=== PATIENT | female | born 1980 | race Caucasian/White ===

== ENCOUNTER 2016-06-01 10:33 | Emergency (ER) | payer BC ==
[2016-06-01] MEDS ORDERED: LORazepam TAB(*) 0.5 MG PO ONE (11:43)
[2016-06-01] MEDS ORDERED: NS 0.9% 1000 ML* 1,000 ML IV ONE (11:44)
[2016-06-01] MEDS ORDERED: NS 0.9% 1000 ML* 1,000 ML BOLUS SCH (11:45)
[2016-06-01] MEDS ORDERED: LORazepam TAB(*) 1 MG PO ONE (11:51)
[2016-06-01] MEDS ORDERED: Ondansetron INJ* 2 MG/ML VIAL IV ONE (12:52)
[2016-06-01] MEDS ORDERED: Ondansetron INJ* 2 MG/ML VIAL ONE (12:53)
[2016-06-01 12:57] VITALS: BP 135/81
--- NOTE | 2016-06-12 08:54 | UC ---
juanito Tripp Timothy, scribed for Terrie Salinas MD on 06/01/16 at 1119 . Psychiatric Complaint HPI - HPI Summary HPI Summary: Kevin Trejo is a 35 yo female presenting to [facility] with anxiety. Pt is accompanied by her father. Pt is breast feeding. Pt states she has been having difficulty sleeping and feels nervous and panicked. She has a Hx of anxiety. She states she has had cycles of anxiety all her life. Her father states she has been stressed by work and everyone in her family has had the flu. Pt denies any thoughts of self-harm, no homicidal ideation. Pt feels overwhelmed. She states she has been on lexapro and very low-dose valium in the past, with some relief of her anxiety. She is a long term care social worker. Pt also states that since her C- section last year she feels like she has an organ move in her RLQ when she bends over, and it is very painful to straighten up, but once straightened the pain resolves. She lives in [place], [place]. Her MHx includes anxiety, , and shingles. - History Of Current Complaint Chief Complaint: UCPsych Stated Complaint: ANXIETY Time Seen by Provider: 06/01/16 11:09 Hx Obtained From: Patient, Family/Roll Scale Man - father Hx Last Menstrual Period: IUD ?: No Onset/Duration: Gradual Onset, Lasting Weeks, Still Present Timing: Constant Severity Initially: Moderate Severity Currently: Moderate Character: Anxious Aggravating Factor(s): Recent Stress Associated Signs And Symptoms: Sleep Disturbance Related History: Positive For: Prior Psychiatric Issues - anxiety - Allergies/Home Medications Allergies/Adverse Reactions: Allergies Allergy/AdvReac Type Severity Reaction Status Date / Time Sulfa Antibiotics Allergy Intermediate Swelling Verified 06/01/16 10:58 Of Face,Lips,& Throat Eggplant Allergy Intermediate Swelling Uncoded 06/01/16 10:58 Of Face,Lips,& Throat PMH/Surg Hx/FS Hx/Imm Hx Endocrine History Of: Denies: Diabetes, Thyroid Disease Cardiovascular History Of: Denies: Cardiac Disorders, Hypertension Respiratory History Of: Denies: COPD, Asthma GI/ History Of: Denies: Ulcer Psychological History Of: Reports: Anxiety - Surgical History Surgical History: Yes Surgery Procedure, Year, and Place: csection x 2 - Family History Known Family History: Positive: Other - no suicide. Anxiety. - Social History Occupation: Employed Full-time Lives: With Family Alcohol Use: Rare Substance Use Type: None Smoking Status (MU): Never Smoked Tobacco Type: Cigarettes Length of Time of Smoking/Using Tobacco: 5 cigs/week Have You Smoked in the Last Year: No - Immunization History Most Recent Influenza Vaccination: unsure Most Recent Tetanus Shot: 02/24/15 Most Recent Pneumonia Vaccination: none Review of Systems Constitutional: Negative Skin: Negative Eyes: Negative ENT: Negative Respiratory: Negative Cardiovascular: Negative Gastrointestinal: Negative Genitourinary: Negative Motor: Negative Neurovascular: Negative Musculoskeletal: Negative Neurological: Negative Psychological: Anxious - with sleep disturbance All Other Systems Reviewed And Are Negative: Yes Physical Exam Triage Information Reviewed: Yes Appearance: No Pain Distress, Well-Nourished, Ill-Appearing - anxious and tearful on exam Vital Signs: Initial Vital Signs Temp 98.3 F 06/01/16 10:52 Pulse 97 06/01/16 10:52 Resp 16 06/01/16 10:52 BP 137/82 06/01/16 10:52 Pulse Ox 99 06/01/16 10:52 Vital Signs Reviewed: Yes Eyes: Positive: Conjunctiva Clear. Negative: Discharge ENT: Positive: Hearing grossly normal. Negative: Muffled/hoarse voice Neck: Positive: Supple, Nontender Respiratory: Positive: Lungs clear, Normal breath sounds, No respiratory distress Cardiovascular: Positive: RRR, No Murmur, Pulses Normal, Brisk Capillary Refill Abdomen Description: Positive: No Organomegaly. Negative: Nontender - mild right flank enderness, Distended, Guarding, Hepatomegaly, McBurney's Point Tenderness, Peritoneal Signs, Pulsatile Mass, Splenomegaly Musculoskeletal: Positive: Strength Intact, ROM Intact Neurological: Positive: Alert, Muscle Tone Normal Psychological: Positive: Age Appropriate Behavior, Other: - anxious Skin Exam: Normal Skin: Negative: rashes Re-Evaluation - Re-Evaluation First Eval Re-Evaluation Time: 11:59 Change: Improved Comment: Pt is much improved and is smiling. She will receive Rx for lexapro and ativan, and dosages were discussed. She is agreeable to current course of Tx. Second Eval Re-Evaluation Time: 12:55 Change: Worse Comment: Pt is now somewhat rehydrated and has mucous. She began to cough, and coughed to the point of vomiting. She will receive zofran, as well as her second L of fluid. She will have strep and flu tests run as well. Psych Complaint Course/Dx - Course Course Of Treatment: Kevin Trejo is a 35 yo female presenting to [facility] with anxiety. She denies any SI or thoughts of self-harm. No homicidal ideation. Her medication list was reviewed this visit. She has agreed to contract for safety. She is requesting IV fluids because she states that she has been dehydrated, in part due to breast-feeding, in part due to her anxiety. She received 2 L of fluids in [facility]. Lexapro was considered for treatment, Pt is concerned that lexapro may have some risk given that she is breast-feeding. Lexapro is cited to have a low risk of harm. Ativan was considered, and is cited to have some risk in that it decreases milk production. After discussion with the Pt, she has chosen ativan because the risks outweigh the benefits. She will also be given lexapro as discussed during her re-evaluation. She was counseled that ativan can be addicting. Group A Rapid Strep Test is negative. After clinical examination and review of her lab work and treatment, she will be discharged home with anxiety, dehydration, and lactating mother with appropriate instructions. - Differential Dx/Diagnosis Differential Diagnosis/HQI/PQRI: Anxiety, Bipolar Disorder, Depression Provider Diagnoses: anxiety, dehydration, lactating mother Discharge - Discharge Plan Condition: Stable Disposition: HOME Prescriptions: Escitalopram Oxalate [Lexapro] 10 mg PO DAILY #30 tab LORazepam TAB(*) [Ativan 0.5 MG TAB (*)] 0.5 mg PO Q8H PRN #15 tab MDD 3 PRN Reason: Anxiety Patient Education Materials: Anxiety (ED), Dehydration (ED), and the Working Mom (ED) Forms: *Work Release Referrals: Soni Rodriguez MD [Primary Care Provider] - If Needed Additional Instructions: Please remember that you have contracted for safety. We recommend Noy Oconnell @ , [address] [place] [address] for a therapist in [place]. Additionally, consider the other options for potential therapists given to you on the business card. Please follow up with a therapist as soon as you are able. Return to urgent care or the emergency department with any new or recurring symptoms, particularly if you begin to have thoughts of self harm or suicide. The documentation as recorded by the juanito workman Timothy accurately reflects the service I personally performed and the decisions made by me, Terrie Salinas MD.
== END 2016-06-01 13:48 | disposition home or self-care (01) ==
LOC: UCEAST 10:33
DX: F41.9 Anxiety disorder, unspecified (principal); E86.0 Dehydration; Z39.1 Encounter for care and examination of lactating mother; Z72.0 Tobacco use
CPT/HCPCS: 87651; 96360; 96374; 96376; 99213; A9270-GY; G0463; J2405

== ENCOUNTER → 2016-06-26 10:50 | Emergency (ER) | payer BC ==
[~2016-06-26 10:50] MED LIST: LORazepam TAB(*) 0.5 MG PO ONE; LORazepam TAB(*) 1 MG PO ONE; Ondansetron ODT TAB* 4 MG ONE; Ondansetron ODT TAB* 4 MG PO ONE; Ondansetron TAB* 4 MG ONE
[2016-06-26 12:47] LABS: Hematocrit 45 % (35-47); Hemoglobin 15.1 g/dl (12.0-16.0); Mean Corpuscular HGB Conc 33 g/dl (31-36); Mean Corpuscular Hemoglobin 31 pg (27-31); Mean Corpuscular Volume 93 fL (80-97); Mean Platelet Volume 8 um3 (7.4-10.4); Red Blood Count 4.84 10^6/ul (4.0-5.4); Red Cell Distribution Width 14 % (10.5-15); White Blood Count 6.6 10^3/ul (3.5-10.8)
[2016-06-26 13:11] LABS: ALT 81 U/L (7-52); AST 88 U/L (13-39); Alkaline Phosphatase 67 U/L (34-104); Anion Gap 11 mmol/L (2-11); BUN/Creatinine Ratio 12.9 (8-20); Blood Urea Nitrogen 9 mg/dL (6-24); CO2 Carbon Dioxide 24 mmol/L (22-32); Calcium 9.1 mg/dL (8.6-10.3); Chloride 101 mmol/L (101-111); EGFR African American 122.5 (>60); EGFR Non-African American 95.2 (>60); Globulin 2.9 g/dL (2-4); Glucose 78 mg/dL (70-100); Potassium 3.9 mmol/L (3.5-5.0); Sodium 136 mmol/L (133-145); Total Protein 6.9 g/dL (6.4-8.9)
[2016-06-26 13:21] LABS: Acetaminophen < 15 mcg/mL; Alcohol 87 mg/dL (<10); Salicylate < 2.50 mg/dL (<30)
[2016-06-26 13:32] LABS: TSH (Thyroid Stimulating Horm) 0.43 mcIU/mL (0.34-5.60)
[2016-06-26 14:14] LABS: Urine Bilirubin Negative (Negative); Urine Glucose Negative (Negative); Urine Nitrite Negative (Negative)
[2016-06-26 14:15] LABS: Benzodiazepine Urine Screen None Detected (None Detect)
[2016-06-26 15:30] VITALS: BP 163/98
--- NOTE | 2016-06-26 20:28 | ED ---
Kady Tripp Auryana, scribed for Fred Powell MD on 06/26/16 at 1410 . Psychiatric Complaint - HPI Summary HPI Summary: 35 year old female presents with increased anxiety over the last 6 months worse since 1 month ago. She reports that she has also been unable to eat due to intermittent vomiting with increased stress and anxiety. She reports that increased stress may be the issue. Her father reports that the last 6 months have been very stressful - patient started a new job, recently certified as a clinical therapist, and now is taking care of 2 children - new born and 5 year old - who are often sick. About 1 month ago she was seen at and given a Rx for Lexapro PO daily, and Ativan (.25 mg) as needed. Patient was seeing a therapist but recently stopped in February. Mirana IUD - no menstrual cycle since before . PMHx is significant for x2, and anxiety. FHx of breast CA, brain tumor, and anxiety. SHx is significant for occasional alcohol (4-6 glass wine a week-much decreased with condition) but no tobacco or recreational drug use. - History Of Current Complaint Chief Complaint: EDGeneral Time Seen by Provider: 06/26/16 11:33 Accompanied By: father Hx Obtained From: Patient Hx Last Menstrual Period: IUD ?: No Onset/Duration: Gradual Onset, Still Present - lasting months Timing: Constant Severity Initially: Mild Severity Currently: Moderate Character: Anxious Aggravating Factor(s): Recent Stress - see HPI Associated Signs And Symptoms: Positive: Appetite Change Related History: Positive For: Prior Psychiatric Issues Recent Stressor(s): FAMILY, WORK - Allergies/Home Medications Allergies/Adverse Reactions: Allergies Allergy/AdvReac Type Severity Reaction Status Date / Time Sulfa Antibiotics Allergy Intermediate Swelling Verified 06/26/16 11:35 Of Face,Lips,& Throat Eggplant Allergy Intermediate Swelling Uncoded 06/01/16 10:58 Of Face,Lips,& Throat PMH/Surg Hx/FS Hx/Imm Hx Endocrine/Hematology History: Denies: Hx Diabetes, Hx Thyroid Disease Cardiovascular History: Denies: Hx Hypertension Respiratory History: Denies: Hx Asthma, Hx Chronic Obstructive Pulmonary Disease (COPD) GI History: Denies: Hx Ulcer Psychiatric History: Reports: Hx Anxiety - Surgical History Surgery Procedure, Year, and Place: csection x 2 Infectious Disease History: No Infectious Disease History: Reports: Hx Shingles - ? 12/2013 Denies: Hx Clostridium Difficile, Hx Hepatitis, Hx Human Immunodeficiency Virus (HIV), Hx of Known/Suspected MRSA, Hx Tuberculosis, Traveled Outside the [place] in Last 30 Days - Family History Known Family History: Positive: Other - no suicide. Anxiety. - Social History Occupation: Employed Full-time Lives: With Family Alcohol Use: Rare Substance Use Type: Reports: None Smoking Status (MU): Never Smoked Tobacco Type: Cigarettes Length of Time of Smoking/Using Tobacco: 5 cigs/week Have You Smoked in the Last Year: No Review of Systems Constitutional: Negative Negative: Fever Eyes: Negative ENT: Negative Cardiovascular: Negative Respiratory: Negative Positive: Other - anorexia Genitourinary: Negative Musculoskeletal: Negative Skin: Negative Neurological: Negative Positive: Anxious All Other Systems Reviewed And Are Negative: Yes Physical Exam - Summary Physical Exam Summary: VITAL SIGNS: Reviewed. GENERAL: Patient is a well developed and nourished female who is lying comfortable in the stretcher. Patient is not in any acute respiratory distress. HEAD AND FACE: No signs of trauma. No ecchymosis, hematomas or skull depressions. No sinus tenderness. EYES: PERRLA, EOMI x 2, No injected conjunctiva, no nystagmus. EARS: Hearing grossly intact. Ear canals and tympanic membranes are within normal limits. MOUTH: Oropharynx within normal limits. NECK: Supple, trachea is midline, no adenopathy, no JVD, no carotid bruit, no c- spine tenderness, neck with full ROM. CHEST: Symmetric, no tenderness at palpation LUNGS: Clear to auscultation bilaterally. No wheezing or crackles. CVS: Regular rate and rhythm, S1 and S2 present, no murmurs or gallops appreciated. ABDOMEN: Soft, non-tender. No signs of distention. No rebound no guarding, and no masses palpated. Bowel sounds are normal. EXTREMITIES: FROM in all major joints, no edema, no cyanosis or clubbing. NEURO: Alert and oriented x 3. No acute neurological deficits. Speech is normal and follows commands. SKIN: Dry and warm PSYCH: Anxious and teary. No signs of psychosis or pressure speech. No tangential speech. Triage Information Reviewed: Yes Vital Signs On Initial Exam: Initial Vitals Temp Pulse Resp BP Pulse Ox 97.4 F 89 20 146/84 99 06/26/16 10:51 06/26/16 10:51 06/26/16 10:51 06/26/16 10:51 06/26/16 10:51 Vital Signs Reviewed: Yes Diagnostics - Vital Signs Vital Signs Temp Pulse Resp BP Pulse Ox 06/26/16 11:34 83 95 06/26/16 11:32 142/89 06/26/16 10:54 97.4 F 82 16 146/84 98 06/26/16 10:51 97.4 F 89 20 146/84 99 - Laboratory Lab Results: Lab Results 06/26/16 06/26/16 06/26/16 Range/Units 12:30 12:30 13:41 WBC 6.6 (3.5-10.8) 10^3/ul RBC 4.84 (4.0-5.4) 10^6/ul Hgb 15.1 (12.0-16.0) g/dl Hct 45 (35-47) % MCV 93 (80-97) fL MCH 31 (27-31) pg MCHC 33 (31-36) g/dl RDW 14 (10.5-15) % Plt Count 229 (150-450) 10^3/ul MPV 8 (7.4-10.4) um3 Neut % (Auto) 67.8 (38-83) % Lymph % (Auto) 21.3 L (25-47) % [place] % (Auto) 10.0 H (1-9) % Eos % (Auto) 0.6 (0-6) % Baso % (Auto) 0.3 (0-2) % Absolute Neuts (auto) 4.5 (1.5-7.7) 10^3/ul Absolute Lymphs (auto) 1.4 (1.0-4.8) 10^3/ul Absolute Monos (auto) 0.7 (0-0.8) 10^3/ul Absolute Eos (auto) 0 (0-0.6) 10^3/ul Absolute Basos (auto) 0 (0-0.2) 10^3/ul Absolute Nucleated RBC 0 10^3/ul Nucleated RBC % 0.1 Sodium 136 (133-145) mmol/L Potassium 3.9 (3.5-5.0) mmol/L Chloride 101 (101-111) mmol/L Carbon Dioxide 24 (22-32) mmol/L Anion Gap 11 (2-11) mmol/L BUN 9 (6-24) mg/dL Creatinine 0.70 (0.51-0.95) mg/dL Est GFR ( Amer) 122.5 (>60) Est GFR (Non-Af Amer) 95.2 (>60) BUN/Creatinine Ratio 12.9 (8-20) Glucose 78 (70-100) mg/dL Calcium 9.1 (8.6-10.3) mg/dL Total Bilirubin 0.40 (0.2-1.0) mg/dL AST 88 H (13-39) U/L ALT 81 H (7-52) U/L Alkaline Phosphatase 67 (34-104) U/L Total Protein 6.9 (6.4-8.9) g/dL Albumin 4.0 (3.2-5.2) g/dL Globulin 2.9 (2-4) g/dL Albumin/Globulin Ratio 1.4 (1-3) TSH 0.43 (0.34-5.60) mcIU/mL Beta HCG, Quant < 0.60 mIU/mL Urine Color Yellow Urine Appearance Clear Urine pH 6.0 (5-9) Ur Specific [place] 1.009 L (1.010-1.030) Urine Protein Negative (Negative) Urine Ketones Trace H (Negative) Urine Blood Negative (Negative) Urine Nitrate Negative (Negative) Urine Bilirubin Negative (Negative) Urine Urobilinogen Negative (Negative) Ur Leukocyte Esterase Negative (Negative) Urine Glucose Negative (Negative) Salicylates < 2.50 (<30) mg/dL Urine Opiates Screen (None Detect) Acetaminophen < 15 mcg/mL Ur Barbiturates Screen (None Detect) Ur Phencyclidine Scrn (None Detect) Ur Amphetamines Screen (None Detect) U Benzodiazepines Scrn (None Detect) Urine Cocaine Screen (None Detect) U Cannabinoids Screen (None Detect) Serum Alcohol 87 H (<10) mg/dL 06/26/16 Range/Units 13:41 WBC (3.5-10.8) 10^3/ul RBC (4.0-5.4) 10^6/ul Hgb (12.0-16.0) g/dl Hct (35-47) % MCV (80-97) fL MCH (27-31) pg MCHC (31-36) g/dl RDW (10.5-15) % Plt Count (150-450) 10^3/ul MPV (7.4-10.4) um3 Neut % (Auto) (38-83) % Lymph % (Auto) (25-47) % [place] % (Auto) (1-9) % Eos % (Auto) (0-6) % Baso % (Auto) (0-2) % Absolute Neuts (auto) (1.5-7.7) 10^3/ul Absolute Lymphs (auto) (1.0-4.8) 10^3/ul Absolute Monos (auto) (0-0.8) 10^3/ul Absolute Eos (auto) (0-0.6) 10^3/ul Absolute Basos (auto) (0-0.2) 10^3/ul Absolute Nucleated RBC 10^3/ul Nucleated RBC % Sodium (133-145) mmol/L Potassium (3.5-5.0) mmol/L Chloride (101-111) mmol/L Carbon Dioxide (22-32) mmol/L Anion Gap (2-11) mmol/L BUN (6-24) mg/dL Creatinine (0.51-0.95) mg/dL Est GFR ( Amer) (>60) Est GFR (Non-Af Amer) (>60) BUN/Creatinine Ratio (8-20) Glucose (70-100) mg/dL Calcium (8.6-10.3) mg/dL Total Bilirubin (0.2-1.0) mg/dL AST (13-39) U/L ALT (7-52) U/L Alkaline Phosphatase (34-104) U/L Total Protein (6.4-8.9) g/dL Albumin (3.2-5.2) g/dL Globulin (2-4) g/dL Albumin/Globulin Ratio (1-3) TSH (0.34-5.60) mcIU/mL Beta HCG, Quant mIU/mL Urine Color Urine Appearance Urine pH (5-9) Ur Specific [place] (1.010-1.030) Urine Protein (Negative) Urine Ketones (Negative) Urine Blood (Negative) Urine Nitrate (Negative) Urine Bilirubin (Negative) Urine Urobilinogen (Negative) Ur Leukocyte Esterase (Negative) Urine Glucose (Negative) Salicylates (<30) mg/dL Urine Opiates Screen None detected (None Detect) Acetaminophen mcg/mL Ur Barbiturates Screen None detected (None Detect) Ur Phencyclidine Scrn None detected (None Detect) Ur Amphetamines Screen None detected (None Detect) U Benzodiazepines Scrn None detected (None Detect) Urine Cocaine Screen None detected (None Detect) U Cannabinoids Screen None detected (None Detect) Serum Alcohol (<10) mg/dL Result Diagrams: 06/26/16 12:30 06/26/16 12:30 Lab Statement: Any lab studies that have been ordered have been reviewed, and results considered in the medical decision making process. Course/Dx - Course Course Of Treatment: patient is medically clear at 13:00 Assessment/Plan: Blood test are found within normal limits. UA is normal and UA is negative. Patient was given Ativan for anxiety. She had one episode of nausea and vomiting and she was given Zofran and her nausea improved. She is awaiting for [facility]. Patient was evaluated by Dr Peterson and he recommended to discharge patient home with f/u with mental health as an outpatient She was given 6 tablets of Ativan for her anxiety. . - Differential Dx/Clinical Impression Provider Diagnosis: Anxiety Discharge - Discharge Plan Condition: Stable Disposition: HOME Patient Education Materials: Generalized Anxiety Disorder (ED) Forms: *Gen. Provider Communication Referrals: Soni Rodriguez MD [Primary Care Provider] - Additional Instructions: Discharge Nurse Notes from [facility] -( 07/01/2016 Patient safe for discharge based on denial of suicidal or homicidal ideations and writers presentation of patient to Dr. Peterson. Discharge instructions include: Patient discharged home with the instructions to follow-up with [facility]- [address] [phone] (OBI signed for same). Patient will contact [facility] tomorrow 2016. If patient changes her mind and prefers to see Noy Petit, therapist [phone] [facility] [address] then she has to locate a psychiatrist for medication review. [facility] 4th Floor ( [phone] ( [address] [address] for alcohol counselling The documentation as recorded by the Kady workman Auryana accurately reflects the service I personally performed and the decisions made by me, Fred Powell MD.
== END | disposition home or self-care (01) ==
LOC: ED 10:50
DX: F41.9 Anxiety disorder, unspecified (principal)
CPT/HCPCS: 36415; 80053; 80307; 80320; 80329; 81003; 84443; 84702; 85025; 99283; A9270-GY; G0480

== ENCOUNTER 2016-07-13 15:18 | Inpatient (IN) | payer BC ==
[2016-07-13 15:47] LABS: Urine Bilirubin Negative (Negative); Urine Glucose Negative (Negative); Urine Nitrite Negative (Negative)
[2016-07-13 16:01] LABS: Benzodiazepine Urine Screen None Detected (None Detect)
[2016-07-13 16:12] LABS: Hematocrit 44 % (35-47); Hemoglobin 14.6 g/dl (12.0-16.0); Mean Corpuscular HGB Conc 33 g/dl (31-36); Mean Corpuscular Hemoglobin 30 pg (27-31); Mean Corpuscular Volume 91 fL (80-97); Mean Platelet Volume 8 um3 (7.4-10.4); Red Blood Count 4.85 10^6/ul (4.0-5.4); Red Cell Distribution Width 14 % (10.5-15); White Blood Count 10.7 10^3/ul (3.5-10.8)
[2016-07-13 16:16] LABS: Add Diff/Slide Review? Slide Review Added; Comments Flag Yes
[2016-07-13 16:23] LABS: ALT 119 U/L (7-52); AST 105 U/L (13-39); Albumin 3.8 g/dL (3.2-5.2); Alkaline Phosphatase 99 U/L (34-104); Anion Gap 11 mmol/L (2-11); Blood Urea Nitrogen 6 mg/dL (6-24); CO2 Carbon Dioxide 25 mmol/L (22-32); Calcium 8.9 mg/dL (8.6-10.3); Chloride 102 mmol/L (101-111); EGFR African American 128.8 (>60); EGFR Non-African American 100.2 (>60); Globulin 2.8 g/dL (2-4); Glucose 111 mg/dL (70-100); Potassium 3.8 mmol/L (3.5-5.0); Sodium 138 mmol/L (133-145); Total Protein 6.6 g/dL (6.4-8.9)
[2016-07-13 16:36] LABS: Eosinophils % 1 % (0-6); Neutrophil % 27 % (38-83); RBC Morphology Normal (Normal); Reactive Lymph % 21 % (0-6)
[2016-07-13 16:37] LABS: Add Path Review? YES; EBV Response NO
[2016-07-13 16:41] LABS: Manual Entry Verification HAN0055; Mono Internal Control QC Line Present
[2016-07-13] MEDS ORDERED: Haloperidol INJ IV/IM* 5 MG/ML AMP ONE (16:42)
[2016-07-13] MEDS ORDERED: diPHENhydraMINE IV* 50 MG/ML 1 ml VIAL (BENADRYL) ONE (16:42)
[2016-07-13] MEDS ORDERED: LORazepam INJ* 2 MG/ML 1 ML VIAL ONE (16:42)
[2016-07-13 16:49] LABS: Acetaminophen < 15 mcg/mL; Alcohol 368 mg/dL (<10); Salicylate < 2.50 mg/dL (<30)
[2016-07-13 16:58] LABS: TSH (Thyroid Stimulating Horm) 0.53 mcIU/mL (0.34-5.60)
--- NOTE | 2016-07-14 03:17 | ED ---
Progress - Progress Note Progress Note: pt admitted with the diagnosis of unspecified anxiety disorder in stable condition - Consult/PCP Time Called: 02:11 Course/Dx - Diagnoses Provider Diagnoses: Depression, Suicidal ideation
[2016-07-14] MEDS ORDERED: Al Hydrox/Mg Hydrox/Simet LIQ* 30 ML UDC PO PRN (03:56)
[2016-07-14] MEDS ORDERED: LORazepam IM* PER WAM PARAMETERS IM SCH (04:00)
[2016-07-14] MEDS ORDERED: LORazepam TAB(*) WAM SCALE 0-6 MG PO SCH (04:00)
[2016-07-14] MEDS: Folic Acid TAB* 1 MG DAILY PO SCH (08:25)
[2016-07-14] MEDS: Vitamin THERAPEUTIC TAB PO SCH (08:25)
[2016-07-14] MEDS: LORazepam TAB(*) 0.5 MG PO PRN ×2 (08:25→16:42)
[2016-07-14] MEDS: Citalopram TAB* 20 MG PO SCH (08:25)
--- NOTE | 2016-07-14 09:14 | ED ---
Carlyle Tripp Alfonso, scribed for Fred Powell MD on 07/13/16 at 1802 . Psychiatric Complaint - HPI Summary HPI Summary: This patient is a 35 year old female presenting to [facility] for SI since earlier today. She reports attempting to drown herself in the bath with intent of just going under the water so life would just be easier for everyone here. She has attempted suicide secondary to depression. She is crying hysterically and reports her acute on chronic anxiety is debilitating. Sx aggravated by drinking and alleviated by nothing. On her drive here, the patients reports her trying to jump out of the car 3 times. She has bruising on her arms from the trying to keep her in the car. Was at the ED two weeks ago for anxiety. She has been on Lexapro and drinks ETOH every day. Recently her tolerance to ETOH has decreased, leading her to fall on the floor after two glasses of wine. Past history of drug abuse. - History Of Current Complaint Chief Complaint: [facility]ental[facility] Time Seen by Provider: 07/13/16 15:34 Hx Obtained From: Patient, Family/Global Category Manager - Hx Last Menstrual Period: IUD Onset/Duration: Sudden Onset, Lasting Hours - Earlier today, Still Present Timing: Constant Severity Initially: Moderate Severity Currently: Moderate Character: Depressed, Anxious Aggravating Factor(s): Alcohol Use Alleviating Factor(s): Nothing Has Suicidal: Reports: Thoughts, With A Plan, Has Prior Attempt(s) - Allergies/Home Medications Allergies/Adverse Reactions: Allergies Allergy/AdvReac Type Severity Reaction Status Date / Time Sulfa Antibiotics Allergy Intermediate Swelling Verified 07/13/16 17:51 Of Face,Lips,& Throat Eggplant Allergy Intermediate Swelling Uncoded 06/01/16 10:58 Of Face,Lips,& Throat PMH/Surg Hx/FS Hx/Imm Hx Endocrine/Hematology History: Denies: Hx Diabetes, Hx Thyroid Disease Cardiovascular History: Denies: Hx Hypertension Respiratory History: Denies: Hx Asthma, Hx Chronic Obstructive Pulmonary Disease (COPD) GI History: Denies: Hx Ulcer Psychiatric History: Reports: Hx Anxiety Denies: Hx Eating Disorder, Hx of Violent Episodes Against Others - Surgical History Surgery Procedure, Year, and Place: csection x 2 Infectious Disease History: No Infectious Disease History: Reports: Hx Shingles - ? 12/2013 Denies: Hx Clostridium Difficile, Hx Hepatitis, Hx Human Immunodeficiency Virus (HIV), Hx of Known/Suspected MRSA, Hx Tuberculosis, Traveled Outside the [place] in Last 30 Days - Family History Known Family History: Positive: Other - no suicide. Anxiety. - Social History Alcohol Use: Rare Substance Use Type: Reports: None Smoking Status (MU): Never Smoked Tobacco Type: Cigarettes Length of Time of Smoking/Using Tobacco: 5 cigs/week Have You Smoked in the Last Year: No Review of Systems Constitutional: Negative Eyes: Negative ENT: Negative Cardiovascular: Negative Respiratory: Negative Gastrointestinal: Negative Genitourinary: Negative Musculoskeletal: Negative Skin: Negative Neurological: Negative Positive: Anxious, Depressed All Other Systems Reviewed And Are Negative: Yes Physical Exam - Summary Physical Exam Summary: VITAL SIGNS: Reviewed. GENERAL: Patient is a well-developed and nourished (MALE OR FEMALE) who is lying comfortable in the stretcher. Patient is not in any acute respiratory distress. HEAD AND FACE: No signs of trauma. No ecchymosis, hematomas or skull depressions. No sinus tenderness. EYES: PERRLA, EOMI x 2, No injected conjunctiva, no nystagmus. EARS: Hearing grossly intact. Ear canals and tympanic membranes are within normal limits. MOUTH: Oropharynx within normal limits. NECK: Supple, trachea is midline, no adenopathy, no JVD, no carotid bruit, no c- spine tenderness, neck with full ROM. CHEST: Symmetric, no tenderness at palpation LUNGS: Clear to auscultation bilaterally. No wheezing or crackles. CVS: Regular rate and rhythm, S1 and S2 present, no murmurs or gallops appreciated. ABDOMEN: Soft, non-tender. No signs of distention. No rebound no guarding, and no masses palpated. Bowel sounds are normal. EXTREMITIES: FROM in all major joints, no edema, no cyanosis or clubbing. NEURO: Alert and oriented x 3. No acute neurological deficits. Speech is normal and follows commands. SKIN: Dry and warm PSYCH: Depressed. Anxious. SI. Triage Information Reviewed: Yes Vital Signs On Initial Exam: Initial Vitals Temp Pulse Resp Pulse Ox 97.8 F 108 20 97 07/13/16 15:26 07/13/16 15:26 07/13/16 15:26 07/13/16 15:26 Vital Signs Reviewed: Yes Diagnostics - Vital Signs Vital Signs Temp Pulse Resp BP Pulse Ox 07/13/16 15:27 98.6 F 99 20 153/88 99 07/13/16 15:26 97.8 F 108 20 97 - Laboratory Lab Results: Lab Results 07/13/16 Range/Units 15:35 Urine Color Yellow Urine Appearance Cloudy Urine pH 6.0 (5-9) Ur Specific [place] 1.005 L (1.010-1.030) Urine Protein Negative (Negative) Urine Ketones Negative (Negative) Urine Blood Negative (Negative) Urine Nitrate Negative (Negative) Urine Bilirubin Negative (Negative) Urine Urobilinogen Negative (Negative) Ur Leukocyte Esterase Negative (Negative) Urine Glucose Negative (Negative) Result Diagrams: 07/13/16 15:56 07/13/16 15:56 Lab Statement: Any lab studies that have been ordered have been reviewed, and results considered in the medical decision making process. Course/Dx - Course Assessment/Plan: Test results within normal limits except for increased LFTs. Urinalysis within normal limits. ETOH of 368. Pt became belligerent, agitated, trying to leave, therefore the patient was given Benadryl, Haldol, and Ativan. At this time, the patient is resting comfortably. After the alcohol level becomes in the legal limit, the patient will be cleared by Dr. Ghosh, the next ER attending. The patient is hemodynamically stable. - Differential Dx/Clinical Impression Provider Diagnosis: Depression, Suicidal ideation Discharge - Discharge Plan Condition: Good Disposition: OTHER Discharge Disposition Comment: Pt will be signed out to Dr. Ghosh, pending dispo, awaiting MHE Referrals: Soni Rodriguez MD [Primary Care Provider] - The documentation as recorded by the Carlyle workman Alfonso accurately reflects the service I personally performed and the decisions made by , Fred Powell MD.
--- NOTE | 2016-07-14 18:33 | HP ---
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 reports this attempt occurred in the context of alcohol abuse. Per conversation with (#[phone]), patient has been consuming 1 - 1.5 bottles of wine per day. On the way to the ED, reports patient attempted to jump from the car while moving. He reports behavior associated with her intoxication. Patient also stated, "I think things would be easier if I wasn't here". Khushi screen was negative. Patient reports anxiety is worse in the morning. She reports "debilitating anxiety" as she considers her day. Patient is the mother of 2 young children, a 5yo girl and a 1yo boy who she is still nursing. 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 She reports being able to hold things together until the ester ended, but feels she abruptly decompensated after. reports some days patient is unable to get out of bed and on numerous occasions had to come home from work to care for her and the children. Patient reports she's been anxious since childhood. She denies unstable home life and reports her parents and are very supportive. Patient reports experiencing low self worth and "negative self talk". Patient has been on Lexapro rx'd by her PCP, but reports no recent benefit to her anxiety. She reports 1 year of counseling with a SW in her PCP's office, primarily focusing on stress mx techniques. Patient reports she has just scheduled an intake appt with a psychotherapist, Dr. Sosa. Patient reports a hx but no current use of illicit substances. Patient minimized her alcohol intake. She denies hx of suicide attempt. Patient denied hx of SIB. reports patient has hx of SIB(cutting in 2009). Patient presented to [facility] 2/2 suicidal gesture. On the unit she denies SI/HI and AH/VH. Past Psych Hx: Inpt - this is patient's 1st inpt psychiatric hospitalization Outpt - patient denies hx of encounters with psychiatrists, but reports hx of counseling x1 year with SW - patient reports her PCP rx'd her MH meds, Lexapro 10mg po daily currently Psychotropic med hx - Xanax, Ativan, Lexapro Suicide attempt Hx / SIB Hx: Patient denies suicide attempt hx reports hx in 2009 of cutting, stressor upcoming graduation and concurrent cocaine and heroin use Trauma Hx: Patient denies hx of physical abuse, emotional abuse, and sexual abuse. Substance Hx: Patient minimized alcohol consumption reporting rare use of alcohol in the last 2 months. reports patient drinks 1 -1.5 bottles of wine per day. Patient denies hx of DUI, Rehab, or occupational / legal issues 2/2 alcohol. Pateint denies hx of black out, alcohol w/d symptoms, and denies hx of alcohol w /d seizure. Patient reports hx of Cocaine use. reports remote hx of them both sniffing and smoking cocaine. also reports remote hx of them both sniffing heroin. Patient has been Rx'd Xanax and Ativan, and patient deny hx of abuse. Medical Hx: Denies Allergies: --------- Sulfa drugs Family Hx: Patient reports no family hx of MH issues. She reports only her maternal GM has BERENICE issues, alcohol. She reports there is no hx of attempted or completed suicide in her family. Social Hx: --------- -Patient to supportive -2 young children, one still nursing -close with parents, visited today -close with only sibling, sister, visited today -Patient is a licensed SW -Works as an instructor at [employer] -no firearms in the home PHYSICAL EXAM: Patient declines physical exam. Please see PE documented in [facility]: Complaint Note, dated 07/13/16 LABS: ----- Laboratory Tests 07/13/16 07/13/16 07/13/16 15:35 15:35 15:56 WBC 10.7 RBC 4.85 Hgb 14.6 Hct 44 MCV 91 MCH 30 MCHC 33 RDW 14 Plt Count 180 MPV 8 Neut % (Auto) 24.1 L Lymph % (Auto) 62.1 H Gladwin % (Auto) 11.3 H Eos % (Auto) 1.8 Baso % (Auto) 0.7 Absolute Neuts (auto) 2.6 Absolute Lymphs (auto) 6.7 H Absolute Monos (auto) 1.2 H Absolute Eos (auto) 0.2 Absolute Basos (auto) 0.1 Absolute Nucleated RBC 0.03 Neutrophils % 27 L Lymphocytes % 44 Reactive Lymphs % 21 H Monocytes % 7 Eosinophils % 1 Nucleated RBC % 0.3 Normal RBC Morphology Normal Hem Pathologist Commnt Sodium Potassium Chloride Carbon Dioxide Anion Gap BUN Creatinine Est GFR ( Amer) Est GFR (Non-Af Amer) BUN/Creatinine Ratio Glucose Calcium Total Bilirubin AST ALT Alkaline Phosphatase Total Protein Albumin Globulin Albumin/Globulin Ratio TSH Urine Color Yellow Urine Appearance Cloudy Urine pH 6.0 Ur Specific [place] 1.005 L Urine Protein Negative Urine Ketones Negative Urine Blood Negative Urine Nitrate Negative Urine Bilirubin Negative Urine Urobilinogen Negative Ur Leukocyte Esterase Negative Urine Glucose Negative Salicylates Urine Opiates Screen None detected Acetaminophen Ur Barbiturates Screen None detected Ur Phencyclidine Scrn None detected Ur Amphetamines Screen None detected U Benzodiazepines Scrn None detected Urine Cocaine Screen None detected U Cannabinoids Screen None detected Serum Alcohol Monoscreen Negative 07/13/16 15:56 WBC RBC Hgb Hct MCV MCH MCHC RDW Plt Count MPV Neut % (Auto) Lymph % (Auto) Gladwin % (Auto) Eos % (Auto) Baso % (Auto) Absolute Neuts (auto) Absolute Lymphs (auto) Absolute Monos (auto) Absolute Eos (auto) Absolute Basos (auto) Absolute Nucleated RBC Neutrophils % Lymphocytes % Reactive Lymphs % Monocytes % Eosinophils % Nucleated RBC % Normal RBC Morphology Hem Pathologist Commnt Sodium 138 Potassium 3.8 Chloride 102 Carbon Dioxide 25 Anion Gap 11 BUN 6 Creatinine 0.67 Est GFR ( Amer) 128.8 Est GFR (Non-Af Amer) 100.2 BUN/Creatinine Ratio 9.0 Glucose 111 H Calcium 8.9 Total Bilirubin 0.40 AST 105 H ALT 119 H Alkaline Phosphatase 99 Total Protein 6.6 Albumin 3.8 Globulin 2.8 Albumin/Globulin Ratio 1.4 TSH 0.53 Urine Color Urine Appearance Urine pH Ur Specific [place] Urine Protein Urine Ketones Urine Blood Urine Nitrate Urine Bilirubin Urine Urobilinogen Ur Leukocyte Esterase Urine Glucose Salicylates < 2.50 Urine Opiates Screen Acetaminophen < 15 Ur Barbiturates Screen Ur Phencyclidine Scrn Ur Amphetamines Screen U Benzodiazepines Scrn Urine Cocaine Screen U Cannabinoids Screen Serum Alcohol 368 H Monoscreen MSE: ----- Appearance - moderate build, fair hygeine, in NAD Behavior - mildly agitated, cooperative Speech - RRR, prosody wnl Eye Contact - good Mood - "anxious" Affect - depressed TP - linear and GD TC - needing to be home to nurse her baby son Perception - no signs of psychosis noted or reported Orientation - A&Ox3 Cognition - intact Insight - poor Judgement - poor SI / HI - present on admission, currently denies both ASSESSMENT: 1. Unspecified anxiety d/o 2. Alcohol induced depressive d/o 3. Alcohol use d/o, severe 4. Cocaine use d/o, in sustained remission 5. Opioid use d/o, in sustained remission PLAN: ------ 1. Continue admission to [facility] for safety and symptom mx. 2. Continue Celexa 20mg po daily for anxiety / mood symptoms. 3. Continue WAM and protocol for Ativan administration. 4. Continue vitamins(MVI, Folate,Thiamine). 5. Per staff patient allowed to bring in home breast pump to send home to nursing son. 6. Hospitalist consult for reports of worsening hemorrhoid pain. 7. Continue compiling collateral information from family, PCP, and outpt SW. 8. Patient to participate in milieu activities and groups.
[2016-07-15] MEDS: LORazepam TAB(*) 0.5 MG PO PRN ×3 (01:06→17:17)
[2016-07-15] MEDS: Vitamin THERAPEUTIC TAB PO SCH (08:11)
[2016-07-15] MEDS: Citalopram TAB* 20 MG PO SCH (08:11)
[2016-07-15] MEDS: Folic Acid TAB* 1 MG DAILY PO SCH (08:11)
[2016-07-15] MEDS: Thiamine TAB* 100 MG TAB DAILY (@ T+1) PO SCH (08:11)
[2016-07-15] MEDS: Hemorrhoidal OINT TOPICAL PRN ×3 (13:02→16:29)
[2016-07-15] MEDS: Acetaminophen TAB* 325 MG PO PRN (23:04)
[2016-07-16] MEDS: LORazepam TAB(*) 0.5 MG PO PRN ×3 (05:47→21:59)
[2016-07-16] MEDS: Thiamine TAB* 100 MG TAB DAILY (@ T+1) PO SCH (08:33)
[2016-07-16] MEDS: Folic Acid TAB* 1 MG DAILY PO SCH (08:33)
[2016-07-16] MEDS: Citalopram TAB* 20 MG PO SCH (08:33)
[2016-07-16] MEDS: Vitamin THERAPEUTIC TAB PO SCH (08:33)
[2016-07-16] MEDS: Acetaminophen TAB* 325 MG PO PRN ×3 (08:33→20:27)
[2016-07-16] MEDS: Hemorrhoidal OINT TOPICAL PRN ×2 (13:32→20:26)
--- NOTE | 2016-07-16 16:01 | PN ---
Subjective - Subjective Service Type: 47567 Hosp care 15 min low complexity Subjective: Kevin reports of mild anxiety otherwise feeling better overall. Understand her main problem has been Alcohol use and is willing to get help including pharmaco therapy ( Naltrexon). Denies SI/HI/A-V hallucinations. Objective - Appearance Appearance: Healthy Appearing Dysmorphic Features: No Hygiene: Normal Grooming: Fairly Well Kept - Behavior Psychomotor Activities: Normal Exhibits Abnormal Movement: No - Attitude and Relatedness Attitude and Relatedness: Appropriate Eye Contact: Good - Speech Quality: Unpressured Latencies: Normal Quantity: Appropriate - Mood Patient's Decription of Mood: "Good" - Affect Observed Affect: Non-labile Affect Consistent with: Euthymia - Thought Process Patient's Thought Process: Coherent, Goal Directed Thought Content: No Passive Wish, No Suicidal Planning, No Homicidal Ideation, No Paranoid Ideation - Sensorium Experiencing Hallucinations: No, Sensorium is Clear Type of Hallucinations: Visual: No, Auditory: No, Command: No - Level of Consciousness Level of Consciousness: Alert Orientation: Yes Intact, Yes Orientated to Time, Yes Orientated to Place, Yes Orientated to Person - Impulse Control Impulse Control: Intact - Insight and Judgement Insight and Judgement: Fair - Group Participation Particating in Group Activities: Yes - Medication Management Medication Management Adherence: Yes Assessment - Assessment Merits Inpatient Hospitalization: Consolidate Improvements, Pending Safe DC Plan Plan - Plan Treatment Plan: Name: KEVIN LEE Birthdate: 1980 [id number] Continued Medication Management: Continue Outpt Medication Medications: Current Medications Acetaminophen (Tylenol Tab*) 650 mg PO Q4H PRN PRN Reason: PAIN or TEMP > 101 F Last Admin: 07/16/16 13:32 Dose: 650 mg Al Hydrox/Mg Hydrox/Simethicone (Maalox Plus*) 30 ml PO Q4H PRN PRN Reason: INDIGESTION Citalopram Hydrobromide (Celexa Tab*) 20 mg PO DAILY [facility] Last Admin: 07/16/16 08:33 Dose: 20 mg Folic Acid (Folvite Tab*) 1 mg PO DAILY [facility] Last Admin: 07/16/16 08:33 Dose: 1 mg Lorazepam (Ativan Inj*) 0 - 6 mg IM .PER WAM PARAMETERS [facility] PRN Reason: Protocol Lorazepam (Ativan Tab(*)) 0 - 6 mg PO .PER WAM PARAMETERS JESSI PRN Reason: Protocol Lorazepam (Ativan Tab(*)) 0.5 mg PO Q8H PRN PRN Reason: ANXIETY Last Admin: 07/16/16 14:05 Dose: 0.5 mg Multivitamins (Theragran Tab*) 1 tab PO DAILY JESSI Last Admin: 07/16/16 08:33 Dose: 1 tab Phenyleph/Shark Oil/Min Oil/Petrol (Preparation H*) 1 applic TOPICAL DAILY PRN PRN Reason: AFTER BM AND NEEDED Last Admin: 07/16/16 13:32 Dose: 1 applic Thiamine HCl (Vitamin B-1 Tab*) 100 mg PO DAILY JESSI Last Admin: 07/16/16 08:33 Dose: 100 mg - Discharge Plan Discharge Plan: Drug/Alcohol Rehab Outpatient Program: TBD
[2016-07-17] MEDS: Acetaminophen TAB* 325 MG PO PRN ×2 (01:39→08:39)
[2016-07-17] MEDS: LORazepam TAB(*) 0.5 MG PO PRN (06:25)
[2016-07-17 07:45] VITALS: BP 131/81
[2016-07-17] MEDS: Thiamine TAB* 100 MG TAB DAILY (@ T+1) PO SCH (08:39)
[2016-07-17] MEDS: Folic Acid TAB* 1 MG DAILY PO SCH (08:39)
[2016-07-17] MEDS: Citalopram TAB* 20 MG PO SCH (08:39)
[2016-07-17] MEDS: Vitamin THERAPEUTIC TAB PO SCH (08:40)
--- NOTE | 2016-07-17 13:09 | PN ---
[facility]: Group Therapy Note - Service Type Service Type: [id number] Group Psychotherapy - Cognitive Behavioral Group Therapy ( CBT):Patient was attentive and participatory in CBT programming this morning, and remained in good behavioral control. Patient expressed positive insights regarding relevant treatment interventions and goals.
--- NOTE | 2016-07-17 15:14 | DCNOTE ---
Subjective - Subjective Subjective: Patient admitted to [facility] s/p suicide attempt by drowing herself in the tub. Patient reported this behavior to her who brought patient to [facility] for psych eval. reported this attempt was in the context of alcohol intoxication. Patient admitted to [facility] for safety. Patient reported hx of benefit at home on Lexapro, but reported it has not been effective lately. Lexapro discontinued. Patient started on Citalopram at 20mg. Patient's admission continued over the weekend. Patient expressed benefit from groups. She reported a lot of "self-reflection" over the weekend. Patient reported recognizing her minimizing her alcohol use. She reported the admission was a "good reboot". Patient reported she has restarted journaling as part of her mechanisms to cope. She journaled "how I got here"... "what I need to do"... "identified triggers". Patient also reported plan to start daily exercise and to not get distressed when her goals aren't met. On interview this morning, day of discharge, patient reported benefit from Celexa 20mg po qam over the weekend. She denied med s/e's. Patient was without SI/HI or AH/VH since admission to the [facility]. Patient requested referral to outpt psychiatry instead of having her PCP continue to Rx her MH meds. Patient has an already scheduled PCP appt for Sunday07/24/16. Patient also has an already scheduled intake appt with a new psychotherapist, Dr. Sosa scheduled for 07/27/16 and patient agreed to a 07/21/16 Drug and alcohol intake at the [facility] program. Patient denies alcohol cravings currently and reported none over the weekend. She also had no alcohol w/d symptoms. Patient psychiatrically stable and was discharged to home today. Patient's sister here to pick patient up to transport her home. Objective - Appearance Appearance: Well Developed/Nourished Dysmorphic Features: No Hygiene: Normal Grooming: Fairly Well Kept - Behavior Psychomotor Activities: Normal Exhibits Abnormal Movement: No - Attitude and Relatedness Attitude and Relatedness: Cooperative Eye Contact: Good - Speech Quality: Unpressured Latencies: Normal Quantity: Appropriate - Mood Patient's Decription of Mood: "Good" - Affect Observed Affect: Fair Affect Consistent with: Euthymia - Thought Process Patient's Thought Process: Coherent Thought Content: No Passive Wish, No Suicidal Planning, No Homicidal Ideation, No Paranoid Ideation - Sensorium Experiencing Hallucinations: No, Sensorium is Clear Type of Hallucinations: Visual: No, Auditory: No, Command: No - Level of Consciousness Level of Consciousness: Alert Orientation: Yes Intact, Yes Orientated to Time, Yes Orientated to Place, Yes Orientated to Person - Impulse Control Impulse Control: Intact - Insight and Judgement Insight and Judgement: Fair - Group Participation Particating in Group Activities: Yes - Medication Management Medication Management Adherence: Yes DC Assessment - Assessment Clinical Impression: 1. Unspecified anxiety disorder 2. Alcohol induced depressive d/o 3. Alcohol use d/o, severe 4. Opioid use d/o, in full remission 5. Cocaine use d/o, in full remission Merits Inpatient Hospitalization: No Clear for Discharge: Adequate Clinical Respons, Acceptable Safety Profile Discharge Planning - Discharge Planning Discharge Plan: Drug/Alcohol Rehab Outpatient Program: [facility] Recommendations for Continuing Care: Psychotherapy Medications: Patient to be discharged home on: 1. Celexa 30mg po qam for anxiety and mood Discharge Planning: Prescriptions provided for discharge [x] Yes [] No Follow up care details as per social work arrangements. Patient response to discharge plan: [] eager for discharge [x] agreeable with discharge plan [] ambivalent about discharge [] disagrees with discharge today
== END 2016-07-17 14:30 | disposition home or self-care (01) | DRG 756 ==
LOC: ED 15:18 → BSU 07-14 03:28
PROVIDERS: ADMIT Psychiatry & Neurology Psychiatry; ATTEND Psychiatry & Neurology Psychiatry
PROC: HZ2ZZZZ Detoxification Services for Substance Abuse Treatment (ICD-10-PCS; 2016-07-14)
PROC: GZHZZZZ Group Psychotherapy (ICD-10-PCS; principal; 2016-07-17)
DX: F41.9 Anxiety disorder, unspecified (principal); F10.94 Alcohol use, unspecified with alcohol-induced mood disorder; F14.90 Cocaine use, unspecified, uncomplicated; F11.90 Opioid use, unspecified, uncomplicated; Z91.5 Personal history of self-harm; Z88.2 Allergy status to sulfonamides; Z83.3 Family history of diabetes mellitus; Z81.1 Family history of alcohol abuse and dependence; Z81.8 Family history of other mental and behavioral disorders; Y90.8 Blood alcohol level of 240 mg/100 ml or more; Z91.018 Allergy to other foods
CPT/HCPCS: 36415; 80053; 80307; 80320; 80329; 81003; 84443; 84702; 85025; 85060; 86308; 90853; 99222; 99231; 99238; A9270-GY; G0480; J1200; J1630; J2060

== ENCOUNTER 2018-02-27 11:28 | Emergency (ER) | payer BC, OTHER ==
[2018-02-27] MEDS ORDERED: Naloxone* 0.4 MG/ML 1 ML VIAL ONE (11:41)
[2018-02-27] MEDS ORDERED: Nicotine Inhaler* 10 MG AMP INH PRN (11:51)
--- NOTE | 2018-02-27 11:51 | ED ---
Psychiatric Complaint - HPI Summary HPI Summary: A 37 y/o female brought in by [facility] ambulance presents to [facility] with a chief complaint of AMS the morning of 02/27/18. Per triage note, "Presents to ED via EMS for AMS since this am when parents had difficulty arousing pt". She denies taking pills, doing drugs or alcohol use. She reports being tired and sad but denies SI, sleeping and eating. She denies fever, chills, erythema (eyes), sore throat, chest pain, shortness of breath, cough, abdominal pain, vomiting, nausea , dysuria, hematuria, myalgia, edema, rash and dizziness. At triage she rated her pain as a 0/10. - History Of Current Complaint Chief Complaint: EDAltMentalStatus Time Seen by Provider: 02/27/18 11:42 Hx Obtained From: Patient, EMS Hx Last Menstrual Period: IUD Onset/Duration: Sudden Onset, Lasting Hours, Resolved Timing: Hours Severity Initially: Mild Severity Currently: Mild Character: Depressed Aggravating Factor(s): Nothing Alleviating Factor(s): Nothing Associated Signs And Symptoms: Positive: Negative - SI, Sleep Disturbance, Appetite Change Has Suicidal: Denies: Thoughts, With A Plan Has Homicidal: Denies: Thoughts, With A Plan - Allergies/Home Medications Allergies/Adverse Reactions: Allergies Allergy/AdvReac Type Severity Reaction Status Date / Time Sulfa (Sulfonamide Allergy Swelling Verified 02/27/18 11:37 Antibiotics) Of Face,Lips,& Throat Eggplant Allergy Intermediate Swelling Uncoded 02/27/18 11:38 Of Face,Lips,& Throat Home Medications: Home Medications Unobtainable 02/27/18 [History Confirmed 02/27/18] PMH/Surg Hx/FS Hx/Imm Hx Endocrine/Hematology History: Denies: Hx Diabetes, Hx Thyroid Disease Cardiovascular History: Denies: Hx Hypertension Respiratory History: Denies: Hx Asthma, Hx Chronic Obstructive Pulmonary Disease (COPD) GI History: Denies: Hx Ulcer Sensory History: Denies: Hx Contacts or Glasses, Hx Hearing Aid Opthamlomology History: Denies: Hx Contacts or Glasses Psychiatric History: Reports: Hx Anxiety, Hx Depression Denies: Hx Eating Disorder, Hx of Violent Episodes Against Others - Surgical History Surgery Procedure, Year, and Place: csection x 2 Infectious Disease History: No Infectious Disease History: Reports: Hx Shingles - ? 12/2013 Denies: Hx Clostridium Difficile, Hx Hepatitis, Hx Human Immunodeficiency Virus (HIV), Hx of Known/Suspected MRSA, Hx Tuberculosis, Traveled Outside the [place] in Last 30 Days - Family History Known Family History: Positive: Other - no suicide. Anxiety. - Social History Alcohol Use: Daily Alcohol Amount: 3 glasses wine per day Substance Use Type: Reports: None Substance Use Comment - Amount & Last Used: Ativan Smoking Status (MU): Never Smoked Tobacco Length of Time of Smoking/Using Tobacco: 5 cigs/week Have You Smoked in the Last Year: No Review of Systems Positive: Fatigue. Negative: Fever, Chills Negative: Erythema Negative: Sore Throat Negative: Chest Pain Negative: Shortness Of Breath, Cough Negative: Abdominal Pain, Vomiting, Nausea Negative: dysuria, hematuria Negative: Myalgia, Edema Negative: Rash Neurological: Negative - dizziness Psychological: Other - Negative: SI, sleeping, eating Positive: Other - Positive: tired, sad All Other Systems Reviewed And Are Negative: Yes Physical Exam - Summary Physical Exam Summary: Constitutional: Well-developed, Well-nourished, Alert. (-) Distressed Skin: Warm, Dry HENT: Normocephalic; Atraumatic Eyes: Conjunctiva normal Neck: Musculoskeletal ROM normal neck. (-) JVD, (-) Stridor, (-) Tracheal deviation Cardio: Rhythm regular, rate normal, Heart sounds normal; Intact distal pulses; The pedal pulses are 2+ and symmetric. Radial pulses are 2+ and symmetric. (-) Murmur Pulmonary/Chest wall: Effort normal. (-) Respiratory distress, (-) Wheezes, (-) Rales Abd: Soft, (-) epigastric tenderness, (-) Distension, (-) Guarding, (-) Rebound Musculoskeletal: (-) Edema Lymph: (-) Cervical adenopathy Neuro: Alert, Oriented x3 Psych: Tired and sad, denies SI, eating, sleeping Triage Information Reviewed: Yes Vital Signs On Initial Exam: Initial Vitals Temp Pulse Resp BP Pulse Ox 97.5 F 93 16 128/79 99 02/27/18 11:34 02/27/18 11:34 02/27/18 11:34 02/27/18 11:34 02/27/18 11:34 Vital Signs Reviewed: Yes Diagnostics - Vital Signs Vital Signs Temp Pulse Resp BP Pulse Ox 02/27/18 11:34 97.5 F 93 16 128/79 99 - Laboratory Result Diagrams: 02/27/18 12:01 02/27/18 12:01 Lab Statement: Any lab studies that have been ordered have been reviewed, and results considered in the medical decision making process. Re-Evaluation - Re-Evaluation First Eval Re-Evaluation Time: 12:00 Change: Unchanged Comment: cleared for MHE Course/Dx - Course Course Of Treatment: A 37 y/o female brought in by [facility] ambulance presents to [facility] with a chief complaint of AMS the morning of 02/27/18. The physical exam revealed that the patient was tired and sad without SI. Lab results obtained. Urines showed trace urine ketones. She has been medically cleared for MHE. In the ED course she was given Zofran PO, Atarax PO, Tylenol PO, Narcan IV, Ativan IV and Nicotine INH. Per mental health grinder brake lining, Dr. Weller suggests discharged with taking Lexapro 10mg daily. We will give her a prescription for 7 days and will also give her a prescription for hydroxyzine. Dr. Weller also recommended close follow up with the patient's PCP. The patient will be discharged and is agreeable with this plan. - Differential Dx/Clinical Impression Provider Diagnosis: Depression - Physician Notifications Discussed Care Of Patient With: Watson Weller Time Discussed With Above Provider: 21:20 Instructed by Provider To: Other - Per mental health grinder brake lining, Dr. Weller suggests discharged with taking Lexapro 10mg daily. We will give her a prescription for 7 days and will also give her a prescription for hydroxyzine. Dr. Weller also recommended close follow up with the patient's PCP. Discharge - Sign-Out/Discharge Documenting (check all that apply): Patient Departure - DC - Discharge Plan Condition: Stable Disposition: HOME Referrals: Soni Rodriguez MD [Primary Care Provider] - (1-2 days) Additional Instructions: RETURN TO THE EMERGENCY DEPARTMENT FOR CHANGING OR WORSENING SYMPTOMS - Billing Disposition and Condition Condition: STABLE Disposition: Home - Attestation Statements Document Initiated by Scribe: Yes Documenting Scribe: Tahir Vitale Provider For Whom Scribe is Documenting (Include Credential): Tom Boles MD Scribe Attestation: I, Tahir Vitale, scribed for Tom Boles MD on 02/27/18 at 2127. Scribe Documentation Reviewed: Yes Provider Attestation: The documentation as recorded by the scribe, Tahir Vitale accurately reflects the service I personally performed and the decisions made by me, Tom Boles MD Status of Scribe Document: Viewed
[2018-02-27 12:11] LABS: ABS Basophils 0 10^3/ul (0-0.2); ABS Eosinophils 0 10^3/ul (0-0.6); ABS Lymphocytes 1.9 10^3/ul (1.0-4.8); ABS Monocytes 0.4 10^3/ul (0-0.8); ABS Neutrophils 7.7 10^3/ul (1.5-7.7); ABS Nucleated RBC 0 10^3/ul; Eosinophil % 0 %; Hematocrit 44 % (35-47); Hemoglobin 14.9 g/dl (12.0-16.0); Lymphocyte % 18.6 %; Mean Corpuscular HGB Conc 34 g/dl (31-36); Mean Corpuscular Hemoglobin 30 pg (27-31); Mean Corpuscular Volume 90 fL (80-97); Nucleated Red Blood Cells % 0.1; Platelet Count 270 10^3/ul (150-450); Red Blood Count 4.94 10^6/ul (4.00-5.40); Red Cell Distribution Width 13 % (10.5-15)
[2018-02-27] MEDS ORDERED: Naloxone* 0.4 MG/ML 1 ML VIAL IV PUSH ONE (12:30)
[2018-02-27] MEDS ORDERED: Ondansetron ODT TAB* 4 MG ONE (12:31)
[2018-02-27 12:32] LABS: ALT 18 U/L (7-52); AST 25 U/L (13-39); Albumin 3.9 g/dL (3.2-5.2); Albumin/Globulin Ratio 1.3 (1-3); Alkaline Phosphatase 56 U/L (34-104); Anion Gap 12 mmol/L (2-11); BUN/Creatinine Ratio 11.8 (8-20); Blood Urea Nitrogen 10 mg/dL (6-24); CO2 Carbon Dioxide 24 mmol/L (22-32); Calcium 8.5 mg/dL (8.6-10.3); Chloride 102 mmol/L (101-111); EGFR African American 91.1 (>60); EGFR Non-African American 75.3 (>60); Globulin 2.9 g/dL (2-4); Glucose 124 mg/dL (70-100); Potassium 3.5 mmol/L (3.5-5.0); Sodium 138 mmol/L (135-145); Total Protein 6.8 g/dL (6.4-8.9)
[2018-02-27] MEDS ORDERED: Ondansetron ODT TAB* 4 MG PO ONE (12:32)
[2018-02-27] MEDS ORDERED: Mouth Piece, Nicotine* 1 EACH CARTRIDGE ONE (13:00)
[2018-02-27 13:03] LABS: Acetaminophen < 15 mcg/mL; Alcohol < 10 mg/dL (<10); Salicylate < 2.50 mg/dL (<30)
[2018-02-27 13:18] LABS: TSH (Thyroid Stimulating Horm) 0.26 mcIU/mL (0.34-5.60)
[2018-02-27] MEDS ORDERED: NS 0.9% 1000 ML* 1,000 ML IV ONE (13:47)
[2018-02-27] MEDS ORDERED: Acetaminophen TAB* 325 MG PO ONE (14:13)
[2018-02-27] MEDS ORDERED: LORazepam INJ* 2 MG/ML 1 ML VIAL IV PUSH ONE (15:17)
[2018-02-27 18:00] LABS: Urine Appearance Cloudy; Urine Bilirubin Negative (Negative); Urine Blood Negative (Negative); Urine Color Yellow; Urine Glucose Negative (Negative); Urine Ketones Trace (Negative); Urine Nitrite Negative (Negative); Urine Protein Negative (Negative); Urine Specific Gravity 1.019 (1.010-1.030); Urine Urobilinogen Negative (Negative)
[2018-02-27 18:22] LABS: Barbiturates Urine Screen None Detected (None Detect); Benzodiazepine Urine Screen None Detected (None Detect); Urine Cannabinoids Screen None Detected (None Detect)
[2018-02-27] MEDS ORDERED: hydrOXYzine HCL TAB* 50 MG PO ONE (19:44)
[2018-02-27] MEDS ORDERED: Ondansetron INJ* 2 MG/ML VIAL ONE (20:51)
[2018-02-27 20:52] VITALS: BP 117/67
[2018-02-27] MEDS ORDERED: Ondansetron INJ* 2 MG/ML VIAL IV ONE (20:53)
== END 2018-02-27 22:06 | disposition home or self-care (01) ==
LOC: ED 11:28
DX: F32.9 Major depressive disorder, single episode, unspecified (principal); F17.210 Nicotine dependence, cigarettes, uncomplicated; Z88.2 Allergy status to sulfonamides
CPT/HCPCS: 36415; 80053; 80307; 80320; 80329; 81003; 84443; 85025; 96361; 96374; 96375; 99285; A9270-GY; G0480; J2060; J2310; J2405